=== PATIENT | male | born 1960 | race Caucasian/White ===

== ENCOUNTER 2024-07-13 06:50 | Outpatient (CLI) | payer BC, SELFPAY ==
--- NOTE | ~2024-07-13 | MR_ITS ---
MRI of the lumbar spine Clinical History: Back pain Technique: Axial T2-weighted images, and sagittal T1-weighted, T2-weighted, and T2 fat-sat images wer e acquired. Findings: There is no fracture in the lumbar spine. There is minimal grade 1 anterolisthesis of L4 ov er L5. No bone marrow signal abnormality seen. At L1-L2, there is no disc bulge or herniation. There is mild to moderate facet arthropathy. No centr al canal stenosis or neural foraminal narrowing. At L2-L3, there is minimal disc bulge with moderate to severe facet arthropathy. No central canal poncho nosis or neural foraminal narrowing. At L3-L4, there is mild disc bulge with severe facet arthropathy. There is minimal central canal sten osis. There is minimal left neural foraminal narrowing. Right neural foramen preserved. At L4-L5, there is minimal disc bulge with severe facet arthropathy. No central canal stenosis. Neura l foramina are preserved. At L5-S1, there is no disc bulge or herniation. There is moderate facet arthropathy. No central canal stenosis or neural foraminal narrowing. Paravertebral soft tissues are unremarkable. Impression: Mild/moderate degenerative spondylosis, as above. Reviewed, dictated and finalized at location . Impression: Mild/moderate degenerative spondylosis, as above.
== END 2024-07-13 06:51 | disposition home or self-care (01) ==
DX: M47.816 Spondylosis without myelopathy or radiculopathy, lumbar region (principal); M47.817 Spondylosis without myelopathy or radiculopathy, lumbosacral region
CPT/HCPCS: 72148

== ENCOUNTER 2024-09-21 10:25 | Outpatient (CLI) | payer BC, SELFPAY ==
--- NOTE | ~2024-09-21 | XR_ITS ---
AP and lateral views of the right hip Clinical history: Pain Findings: No acute fracture or dislocation is seen. Osseous alignment is anatomic. There is mild dege nerative change of the right hip joint. Soft tissues are unremarkable. Impression: Mild degenerative change of the right hip joint. Reviewed, dictated and finalized at location . Impression: Mild degenerative change of the right hip joint.
== END 2024-09-21 10:26 | disposition home or self-care (01) ==
DX: M16.11 Unilateral primary osteoarthritis, right hip (principal)
CPT/HCPCS: 73502